=== PATIENT | female | born 2000 | race American Indian/Alaskan Native ===

== ENCOUNTER → 2019-01-02 | Emergency (ER) | payer SELFPAY ==
[~2019-01-02] MED LIST: BOOSTRIX IM ONE
--- NOTE | 2019-01-02 19:30 | Emergency Department Report ---
Blank Doc - Documentation Documentation: This is a 18-year-old female that presents with an infected tattoo to right bu ttock area. Denies being UTD with tetanus This initial assessment/diagnostic orders/clinical plan/treatment(s) is/are subject to change based on patient's health status, clinical progression and re- assessment by fellow clinical providers in the ED. Further treatment and workup at subsequent clinical providers discretion. Patient/guardians urged not to elope from the ED as their condition may be serious if not clinically assessed and managed. Initial orders include: 1- Patient sent to [facility] for further evaluation and treatment 2- tetenus
[2019-01-02 21:17] VITALS: BP 106/81
--- NOTE | 2019-01-02 21:38 | Emergency Department Report ---
- General Chief complaint: Extremity Problem,Nontraumatic Stated complaint: LOWER TATTOO INFECTION Time Seen by Provider: 01/02/19 19:27 Source: patient Mode of arrival: Ambulatory Limitations: No Limitations - History of Present Illness Initial comments: Patient is a 18 years old female with no significant past medical history. Patient presented to the ER complaining of right buttock skin lesion that happen after she had a tattoo 2 month ago. Patient stated that is hurting. Patient stated that she went to another ER 2 weeks ago and she was given antibiotic but it did not help. Patient denies any fever or chills. MD complaint: lesion, discoloration -: month(s) (2) Tetanus Up to Date: no Location: buttocks - Related Data Allergies Allergy/AdvReac Type Severity Reaction Status Date / Time No Known Allergies Allergy Unverified 01/02/19 18:33 Abscess Boil HPI - HPI Chief Complaint: Extremity Problem,Nontraumatic Stated Complaint: LOWER TATTOO INFECTION Time Seen by Provider: 01/02/19 19:27 Allergies/Adverse Reactions: Allergies Allergy/AdvReac Type Severity Reaction Status Date / Time No Known Allergies Allergy Unverified 01/02/19 18:33 ED Review of Systems ROS: Stated complaint: LOWER TATTOO INFECTION Other details as noted in HPI Comment: All other systems reviewed and negative Constitutional: denies: chills, fever Respiratory: denies: cough, shortness of breath, SOB with exertion Cardiovascular: denies: chest pain, palpitations Gastrointestinal: denies: abdominal pain Skin: rash, lesions ED Past Medical Hx - Past Medical History Previous Medical History?: No - Surgical History Past Surgical History?: No - Social History Smoking Status: Never Smoker ED Physical Exam - General Limitations: No Limitations General appearance: alert, in no apparent distress - Head Head exam: Present: atraumatic, normocephalic, normal inspection - Eye Eye exam: Present: normal appearance - ENT ENT exam: Present: normal exam, normal orophraynx, mucous membranes moist - Neck Neck exam: Present: normal inspection, full ROM. Absent: tenderness, meningismus, lymphadenopathy, thyromegaly - Respiratory Respiratory exam: Present: normal lung sounds bilaterally. Absent: respiratory distress, wheezes, rales, rhonchi, decreased breath sounds, prolonged expiratory, other - Cardiovascular Cardiovascular Exam: Present: regular rate, normal rhythm, normal heart sounds - GI/Abdominal GI/Abdominal exam: Present: soft, normal bowel sounds. Absent: distended, tenderness, guarding, rebound, rigid, organomegaly, mass, bruit, pulsatile mass, hernia - Extremities Exam Extremities exam: Present: normal inspection, full ROM, normal capillary refill - Back Exam Back exam: Present: normal inspection, full ROM. Absent: CVA tenderness (R), CVA tenderness (L), muscle spasm, paraspinal tenderness, vertebral tenderness - Neurological Exam Neurological exam: Present: alert - Skin Skin exam: Present: rash, other (right buttocks with maculopapular rash in the area off the tattoo consistent with contact dermatitis.) ED Course Vital Signs 01/02/19 01/02/19 01/02/19 18:36 21:17 21:26 Temperature 98 F 98.5 F Pulse Rate 83 74 Respiratory 16 16 18 Rate Blood Pressure 130/82 106/81 [Right] O2 Sat by Pulse 100 98 Oximetry Critical care attestation.: If time is entered above; I have spent that time in minutes in the direct care of this critically ill patient, excluding procedure time. ED Disposition Clinical Impression: Contact dermatitis, Tattoo reaction Disposition: DC-01 TO HOME OR SELFCARE Is pt being admited?: No Condition: Stable Instructions: Contact Dermatitis (ED) Referrals: [facility] [Provider Group] - 3-5 Days
== END | disposition home or self-care (01) ==
LOC: ED 18:30
DX: L30.9 Dermatitis, unspecified (principal)
CPT/HCPCS: 90471; 90715; 99282